=== PATIENT | male | born 1985 | race Caucasian/White ===

== ENCOUNTER 2020-03-17 02:09 | Emergency (ER) | payer OTHER, SELFPAY ==
[2020-03-17 02:12] VITALS: BP 112/76; PULSE 76; RESP 16; TEMP 37.2; O2SAT 96; BMI 22.5
[2020-03-17 02:38] VITALS: BP 94/52; PULSE 75; RESP 18; O2SAT 99
--- NOTE | 2020-03-17 02:50 | HMH.EDEYEP ---
ED Disposition Clinical Impression: Corneal abrasion Qualifiers: Encounter type: initial encounter Laterality: right Qualified Code(s): S05.01XA - Injury of conjunctiva and corneal abrasion without foreign body, right eye, initial encounter Disposition: Home, Self-Care Condition on Discharge: Good Instructions: DI for Eye Pain Additional Instructions: call dr painter this am Referrals: PCP,No [Primary Care Provider] - - Critical Care Critical Care Time: No Attestation: On 03/17/20, the high probability of a clinically significant, sudden or life threatening deterioration of the following system(s) required my full and direct attention, intervention and personal management. The time I documented below is in addition to time spent performing reported procedures but includes the following listed in this critical care notation. Medical Decision Making - Medical Records Medical records reviewed: Yes: I reviewed the patient's medical records. - Rick Inquiry Pt receiving controlled substance: No Vital Signs: 03/17/20 02:12 03/17/20 02:38 Temperature 98.9 F Temperature Source Oral Pulse Rate [Left Radial] 76 75 Respiratory Rate 16 18 Blood Pressure [Right Arm] 112/76 94/52 L Blood Pressure Mean [Right Arm] 88 66 Blood Pressure Source [Right Arm] Automatic Cuff Blood Pressure Position [Right Arm] Sitting 02 Sat by Pulse Oximetry 96 99 Oxygen Delivery Method Room Air Room Air Eye Problem HPI - General Chief complaint: Eye Problems Stated complaint: Pain in Rt Eye Time Seen by Provider: 03/17/20 02:50 Mode of Arrival: Ambulatory Source of Information: Patient, Relative, Medical Record Limitations: No Limitations Description of Symptoms (Recalled from ER Triage Doc. by RN): pt c/o right eye pain that started around 7pm. pt stated he wears contacts and feels like he has either sratched his eye or has something in it. - History of Present Illness HPI Narrative: fb sensation and pain rt eye after contacts chief complaint: eye pain Onset (ago): hour(s) Onset description: gradual Duration: constant Location: right eye Eye Symptoms: foreign body sensation, photophobia Place: home Mechanism: none Severity: moderate Context: contact lens use Associated symptoms: none Treatments Prior to Arrival: removed contact lens - Related Data Home Medications Medication Instructions Recorded Confirmed No Known Home Medications 03/17/20 03/17/20 Allergies Allergy/AdvReac Type Severity Reaction Status Date / Time No Known Allergies Allergy Verified 03/17/20 02:39 [facility] History - Hepatitis A Screen Drug use history?: No High risk sexual behaviors?: No History of sexually transmitted infection?: No Currently employed?: No Childcare worker?: No Do you have indoor plumbing?: Yes Do you have electricity?: Yes Attestation statement:: This patient has been screened for Hepatitis A risk factors. I have reviewed the patient's past medical history: Yes - Social History Smoking Status: Current every day smoker # Packs/Day (cigarettes): 1 Alcohol Intake: never Occupational Status: unemployed ROS Obtained: Yes All systems reviewed & no additional complaints - Constitutional Constitutional: Denies fever(s) - Eyes Eyes: Reports as per HPI, Reports change in vision, Reports sensitivity to light, Reports eye pain - ENT Ears, Nose, Mouth, and Throat: Denies headache(s) - Cardiovascular Cardiovascular: Denies chest pain - Respiratory Respiratory: No cough - Gastrointestinal Gastrointestingal: Denies: abdominal pain - Genitourinary Male Genitourinary: Denies hematuria - Musculoskeletal Musculoskeletal: Denies joint pain - Integumentary/Breasts Skin/Breast: Denies rash - Neurologic Neurologic: Denies focal weakness, Denies headache(s) Physical Exam - General General appearance: alert - Head Head exam: normocephalic - Eye Eye exam: Present: PERRL, EOMI, conju
[2020-03-17 03:09] VITALS: BP 101/63; PULSE 68; RESP 15; TEMP 36.6; O2SAT 100
== END 2020-03-17 03:15 | disposition home or self-care (01) ==
PROVIDERS: Emergency Provider Emergency Medicine
DX: S05.01XA Injury of conjunctiva and corneal abrasion without foreign body, right eye, initial encounter (principal); W45.8XXA Other foreign body or object entering through skin, initial encounter
CPT/HCPCS: 99282